=== PATIENT | male | born 1950 | race Caucasian/White ===

== ENCOUNTER 2018-04-21 09:20 | Emergency (ER) | payer BC, MEDICARE, OTHER ==
--- NOTE | 2018-04-21 09:49 | RAD ---
TWO VIEWS CHEST: HISTORY: Cough. FINDINGS: PA and lateral views of the chest are obtained. The lungs are well aerated. No evidence of active i ntrathoracic disease is seen. No evidence of effusions, pneumonia, or pneumothorax is seen. IMPRESSION: Unremarkable 2 views chest. POS: [facility]
== END 2018-04-21 09:46 | disposition home or self-care (01) ==
LOC: SCSER 09:20
DX: J40 Bronchitis, not specified as acute or chronic (principal)
CPT/HCPCS: 71046

== ENCOUNTER 2019-03-11 08:28 | Outpatient (CLI) | payer MEDICARE | END 2019-03-11 08:29 | disposition home or self-care (01) | LOC: CTENTCT 08:28 | PROVIDERS: ATTEND Specialist | DX: J31.0 Chronic rhinitis (principal) | CPT/HCPCS: 70486 ==

== ENCOUNTER 2019-04-25 12:53 | Day surgery (SDC) | payer MEDICARE ==
[2019-04-24 13:13] VITALS: BMI 30.2
[2019-04-25] MEDS ORDERED: Lidocaine 1% PF 5 ML VIAL ONE (14:42)
[2019-04-25] MEDS ORDERED: Ondansetron PF 4 MG/2 ML Vial ONE (14:42)
[2019-04-25] MEDS ORDERED: PHENYLEPHRINE-NS 100 MCG/ML 10 ML SYRINGE ONE (14:42)
[2019-04-25] MEDS ORDERED: PROPOFOL 200 MG/20 ML VIAL ONE (14:42)
[2019-04-25] MEDS ORDERED: Succinylcholine Chloride 20 MG/ML 10 ml SYRINGE FS ONE (14:42)
[2019-04-25] MEDS ORDERED: Dexamethasone 20 MG/5 ML VIAL ONE (14:42)
[2019-04-25 16:11] LABS: Hemoglobin 15.8 g/dL (14.0-18.0)
[2019-04-25 16:32] LABS: Anion Gap 13 mmol/L (10-20); BUN (Urea Nitrogen) 17 mg/dL (8.4-25.7); Calc. Creatinine Clearance 93 mL/min (70-130); Calcium 9.8 mg/dL (7.8-10.44); Carbon Dioxide 26 mmol/L (23-31); Chloride 103 mmol/L (98-107); Estimated GFR-MDRD 72; Glucose 101 mg/dL (80-115); Sodium 138 mmol/L (136-145)
[2019-04-25] MEDS ORDERED: Midazolam HCl 2 mg/2 ml Vial ONE (17:43)
[2019-04-25] MEDS ORDERED: Fentanyl 100 MCG/2 ML VIAL ONE ×3 (17:43→19:40)
[2019-04-25] MEDS ORDERED: Lidocaine 2% Jelly 5 ML TUBE ONE (17:43)
[2019-04-25] MEDS ORDERED: Lidocaine 1% w/Epinephrine 1:100K 20 ML VIAL ONE (17:45)
[2019-04-25] MEDS ORDERED: Bacitracin Zinc Ointment 30 gm TUBE ONE (17:46)
[2019-04-25] MEDS ORDERED: HYDROcodone/Acetaminophen 5/325 mg Tablet ONE (20:59)
--- NOTE | 2019-04-26 10:11 | OP ---
DATE OF PROCEDURE: 04/25/2019 PREOPERATIVE DIAGNOSES: Profound septal deformity, right septal spur, nasal valve collapse, and hypertrophic inferior turbinates. POSTOPERATIVE DIAGNOSES: Profound septal deformity, right septal spur, nasal valve collapse, and hypertrophic inferior turbinates. PROCEDURES PERFORMED: 1. Septoplasty. 2. Bilateral nasal endoscopy with submucosal resection of inferior turbinates. 3. Bilateral nasal valve repair using Latera. DESCRIPTION OF PROCEDURE: Procedure #1: After local anesthesia was infiltrated into the submucoperichondrial plane, a standard Baldemar incision was made with a #15 blade down to the level of the septal cartilage. The caudal elevator was used to elevate the mucoperichondrium from the underlying cartilage. We then proceeded beyond the bony cartilaginous junction and elevated the bony periosteum as well. Great attention was paid to the spur to prevent rent formation in the septal flap. A transcartilaginous incision was then made, while preserving an adequate dorsal and caudal cartilaginous strut for tip support. The deformed cartilage was removed and disarticulated from the bony cartilaginous junction and maxillary crest. This was placed in saline and would later be crushed and returned to the mucoperichondrial envelope. We then elevated the contralateral periosteum from the bony cartilaginous region and removed the deformed portions of the bone and bony spurs. The cartilage was then crushed and placed back into the mucoperichondrial envelope and the mucosa was re-approximated with a quilting stitch composed of rapidly absorbent gut suture. The Baldemar incision was also closed with interrupted gut suture. At the completion of the case, Saez splints were placed and suture secured to the caudal septum. Procedure #2: After consent was obtained, the patient was identified, brought to the operating room, and placed on the operating room table in the supine position. Consent was obtained, notifying the patient of the possibility of additional infections, bleeding, brain injury, and eye/orbital injury. The patient was placed on the operating room table, and general endotracheal anesthesia and intravenous access was obtained. The patient was then positioned, prepped and draped for endoscopic sinus surgery. Nasal preparation included trimming nasal vestibular hairs and spraying in topical Afrin. We then placed Afrin topical solution on nasal pledgets and strategically located them intranasally. The perinasal mucosa was injected with 1% lidocaine with 1:100,000 epinephrine in the submucoperichondrial plane of the septum, lateral nasal wall, and anterior to the uncinate. The patient was then prepped and draped in a sterile fashion and positioned for endoscopic sinus surgery. With the 0-degree endoscope, the patient underwent systematic nasal endoscopy. There were no suspicious internasal masses or lesions identified. We then focused our attention to the osteomeatal complex region under the middle turbinate. The inferior turbinates were visualized with a 0 degree endoscope and outfractured with a Amy elevator. The inferior medial aspect was cauterized with the electrocautery. Hemostasis was obtained . After adequate airway was established, we turned our attention to the contralateral side and used a similar procedure. Again, a Amy elevator was used to outfracture inferior turbinates under endoscopic visualization. With a suction cautery, the free inferior medial aspect was cauterized under direct visualization along the length of the inferior turbinate. At this point, we then turned our attention to the contralateral side and proceeded with endoscopic sinus surgery. At the completion of the case, Rice keel splints were placed in the ethmoid cavities after the ethmoidectomy. There were no complications. The patient tolerated the procedure well and was discharged to the recovery room in stable condition prior to return to the preoperative day stay with ultimate discharge home. Prescriptions for pain medication and antibiotics were provided. The patient received intramuscular Depo-Medrol during the case. Procedure #3: Following the turbinate surgery, we proceeded to nasal valve reconstruction. Topical anatomy was delineated in the nasion as well as over the alar crease and marcated with a marking pen. We then also made an alar alycia. Local anesthesia was infiltrated, and the needle portion of the Latera device was inserted down to the plane of the nasal bone and then turned laterally, where it went up to the point of topical marking. It was then released and kept in place as the implantation device was withdrawn. We then turned our attention to the contralateral side and used identical technique. We did this with the assistance of the Latera jewelry sales representative. Good placement was obtained and verified. The patient was awakened, extubated, and taken to recovery room in a stable condition prior to discharge home. Job ID: [id number]
== END 2019-04-25 21:30 | disposition home or self-care (01) ==
LOC: SDC 12:53
PROVIDERS: ATTEND Specialist
PROC: 09RM07Z Replacement of Nasal Septum with Autologous Tissue Substitute, Open Approach (ICD-10-PCS; principal; 2019-04-25)
PROC: 09TL8ZZ Resection of Nasal Turbinate, Via Natural or Artificial Opening Endoscopic (ICD-10-PCS; 2019-04-25)
PROC: 09UK0JZ Supplement Nasal Mucosa and Soft Tissue with Synthetic Substitute, Open Approach (ICD-10-PCS; 2019-04-25)
DX: J34.89 Other specified disorders of nose and nasal sinuses (principal); J34.3 Hypertrophy of nasal turbinates; J30.2 Other seasonal allergic rhinitis
CPT/HCPCS: 36415; 80048; 85014; 85018; 93005; 93010; J1100; J2001; J2250; J2405; J2704; J3010